=== PATIENT | male | born 1960 | race Caucasian/White ===

== ENCOUNTER → 2017-10-19 | Outpatient (CLI) | payer MEDICARE ==
[~2017-10-19] MED LIST: ALLEGRA; AMITRIPTYLINE H25 M2 PO; ATROVENT HFA14 GM INH; ATROVENT INHALER; AVINZA 90 MG CA90 MG PO; BENTYL 10 MG CA10 M1 PO; BRINTELLIX5 MG PO; BUTALB-APAP-CA1 EACH PO; CHANTIX1 MG PO; EXCEDRIN CAPLE1 EACH PO; FLEXERIL PO; HYDROCODON-ACE1 EAC7 PO; NEURONTIN 300300 M1 PO; NEURONTIN 400400 M1 PO; OXYCODONE HCL15 MG PO; PHENERGAN 25 MG25 M1 PO; PRISTIQ50 MG PO; PROAIR HFA8.5 GM IH; PROVENTIL HFA6.7 G1 INH; REGLAN 5 MG TAB5 MG PO; SENOKOT-S1 TA1 PO; SYMBICORT160 MCG/4. INH; TIZANIDINE HCL4 MG PO; TRANSDERM-SCO1 PATCH TRANSDERM; VERAPAMIL PO; XANAX 0.5 MG0.5 MG PO; XANAX PO; ZANAFLEX4 MG PO; ZOFRAN ODT4 MG DISSOLVE; ZOFRAN4 MG PO; ZYRTEC
== END ==
LOC: M.ULTRA 15:48
DX: M79.662 Pain in left lower leg (principal); R60.0 Localized edema

== ENCOUNTER → 2017-12-07 | Outpatient (CLI) | payer MEDICARE | LOC: M.NUC 07:17 | DX: R10.9 Unspecified abdominal pain (principal); R11.2 Nausea with vomiting, unspecified; R63.4 Abnormal weight loss ==

== ENCOUNTER 2017-12-08 12:43 | Emergency (ER) | payer MEDICARE ==
[~2017-12-08] VITALS: Ht 167.6 cm; Wt 75.8 kg
[~2017-12-08 12:43] MED LIST changes: -BRINTELLIX5 MG PO; -HYDROCODON-ACE1 EAC7 PO; -PHENERGAN 25 MG25 M1 PO; -ZOFRAN ODT4 MG DISSOLVE; -ZOFRAN4 MG PO
[2017-12-08] MEDS ORDERED: ATROVENT HFA14 GM INH (12:56)
[2017-12-08] MEDS ORDERED: PHENERGAN 25 MG25 M1 PO (12:56)
[2017-12-08] MEDS ORDERED: BRINTELLIX5 MG PO (12:56)
[2017-12-08] MEDS ORDERED: ZOFRAN ODT4 MG DISSOLVE (12:57)
[2017-12-08 13:18] LABS: ABSOLUTE BASOPHILS 0.1 thou/uL (0.0-0.2); ABSOLUTE EOSINOPHILS 0.1 thou/uL (0.0-0.7); ABSOLUTE MONOCYTES 0.5 thou/uL (0.0-1.2); BASOPHILS 0.7 %; EOSINOPHILS 1.5 %; HEMATOCRIT 46.6 % (42.0-52.0); HEMOGLOBIN 16.4 gm/dL (14.0-18.0); LYMPHOCYTES 20.9 %; MCH 34.3 pg (26.0-34.0); MCHC 35.2 g/dL (28.0-37.0); MCV 97.4 fL (80.0-100.0); MONOCYTES 5.4 %; MPV 7.9 fl. (7.2-11.1); NUCLEATED RBCS 0 /100WBC; PLATELET COUNT* 245 thou/uL (150-400); POLYS 71.5 %; RBC 4.78 mil/uL (4.50-6.00); RDW-CV 13.7 % (10.5-14.5); WBC 9.8 thou/uL (4.0-11.0)
[2017-12-08 13:23] LABS: URINE BILIRUBIN NEGATIVE (Negative); URINE BLOOD NEGATIVE (Negative); URINE CLARITY CLEAR; URINE COLOR YELLOW; URINE GLUCOSE-RANDOM NEGATIVE (Negative); URINE KETONES NEGATIVE (Negative); URINE LEUKOCYTES-REFLEX NEGATIVE (Negative); URINE NITRITE-REFLEX NEGATIVE (Negative); URINE PROTEIN NEGATIVE (Negative); URINE UROBILINOGEN 0.2 E.U./dl (0.2-1.0)
[2017-12-08 13:26] LABS: CALCIUM 9.7 mg/dL (8.5-10.1); CREATININE 0.9 mg/dL (0.6-1.3); POTASSIUM 4.1 mmol/L (3.5-5.1)
[2017-12-08 13:42] LABS: ALBUMIN 4.2 g/dL (3.4-5.0); TOTAL BILIRUBIN 0.4 mg/dL (<0.1-1.0); TOTAL PROTEIN 7.6 g/dL (6.4-8.2)
[2017-12-08] MEDS ORDERED: ZOFRAN4 MG PO (14:25)
[2017-12-08] MEDS ORDERED: HYDROCODON-ACE1 EAC7 PO (14:25)
[2017-12-08 14:46] VITALS: BP 119/70
== END 2017-12-08 14:48 | disposition home or self-care (01) ==
LOC: M.ERS 12:43
PROVIDERS: Emergency Medicine
DX: R10.10 Upper abdominal pain, unspecified (principal); R19.7 Diarrhea, unspecified; J44.9 Chronic obstructive pulmonary disease, unspecified; F32.9 Major depressive disorder, single episode, unspecified; F17.210 Nicotine dependence, cigarettes, uncomplicated; Z88.1 Allergy status to other antibiotic agents

== ENCOUNTER → 2017-12-11 | Outpatient (CLI) | payer MEDICARE ==
[~2017-12-11] MED LIST changes: +BRINTELLIX5 MG PO; +HYDROCODON-ACE1 EAC7 PO; +PHENERGAN 25 MG25 M1 PO; +ZOFRAN ODT4 MG DISSOLVE; +ZOFRAN4 MG PO
== END ==
LOC: M.LAB 08:45
DX: K52.9 Noninfective gastroenteritis and colitis, unspecified (principal); J44.9 Chronic obstructive pulmonary disease, unspecified